=== PATIENT | male | born 1990 | race Caucasian/White ===

== ENCOUNTER 2016-06-15 17:51 | Emergency (ER) | payer OTHER ==
[2016-06-15] MEDS ORDERED: IBUPROFEN 600 MG TABLET ONE (18:33)
--- NOTE | 2016-06-15 18:36 | RAD ---
RIGHT FOOT 3 VIEWS HISTORY: Stepped in a hole with right foot pain. COMPARISONS: None. TECHNIQUE: Frontal, lateral, and oblique views of the right foot. ALIGNMENT: Grossly unremarkable. FRACTURE: No displaced acute fracture. SOFT TISSUES: Grossly unremarkable. RADIOOPAQUE FOREIGN BODY: None. IMPRESSION: No gross malalignment or displaced acute fracture noted.
== END 2016-06-15 19:38 | disposition home or self-care (01) ==
LOC: ED 17:51
DX: S93.601A Unspecified sprain of right foot, initial encounter (principal); S86.011A Strain of right Achilles tendon, initial encounter; F17.210 Nicotine dependence, cigarettes, uncomplicated; W17.2XXA Fall into hole, initial encounter; Y92.89 Other specified places as the place of occurrence of the external cause
CPT/HCPCS: 73630; 99283 ×2; A9270

== ENCOUNTER 2016-07-19 10:37 | Emergency (ER) | payer OTHER ==
--- NOTE | 2016-07-19 11:14 | RAD ---
EXAMINATION:CHEST - 2 VIEWS CLINICAL INDICATION: Cough COMPARISON: Prior study 03/13/2016. FINDINGS: The cardiomediastinal silhouette is within normal limits. There is no adenopathy identified. There is no pleural effusion. The lungs are clear. The osseous structures are unremarkable for age. IMPRESSION: Negative PA and lateral views of the chest. No acute cardiopulmonary process is identified.
== END 2016-07-19 11:31 | disposition home or self-care (01) ==
LOC: ED 10:37
DX: J40 Bronchitis, not specified as acute or chronic (principal); F17.210 Nicotine dependence, cigarettes, uncomplicated